=== PATIENT | male | born 1935 | race Caucasian/White ===

== ENCOUNTER 2017-08-30 06:28 | Emergency (ER) | payer MEDICARE, BC ==
--- NOTE | 2017-08-30 07:23 | EDM.PDOC ---
ED HPI GENERAL MEDICAL PROBLEM - General Chief Complaint: General Stated Complaint: weak Time Seen by Provider: 08/30/17 07:10 Source of Information: Reports: Patient, Old Records, RN History Limitations: Reports: No Limitations - History of Present Illness INITIAL COMMENTS - FREE TEXT/NARRATIVE: 82 yo male who has multiple chronic medical conditions and who lives alone was brought into the ER today for generalized weakness. He lives alone and is wheelchair bound. His weakness has been slowly progressive since his clinic visit in late May. He denies any recent illnesses or pain(other than chronic shoulder pain). Onset: Gradual Duration: Week(s):, Getting Worse Location: Reports: Generalized Quality: Reports: Other (no new pain) Severity: Moderate Improves with: Reports: None Worsens with: Reports: Other (? time) Context: Reports: Other (? lack of physical activity.) Associated Symptoms: Reports: No Other Symptoms Treatments R[employer]: Reports: Other (see below) (none) - Related Data Allergies Allergy/AdvReac Type Severity Reaction Status Date / Time No Known Allergies Allergy Verified 03/19/15 21:51 Home Meds: Home Meds Aspirin [Melina Chewable Aspirin] 81 mg PO DAILY 09/26/14 [History] Bimatoprost [Lumigan] 1 drop EYEBOTH BEDTIME 09/26/14 [History] Brimonidine Tartrate [Alphagan P] 1 drop EYEBOTH BID 09/26/14 [History] Dorzolamide HCl/Timolol Maleat [Cosopt Eye Drops] 1 drop EYEBOTH BID 09/26/14 [ History] Isosorbide Dinitrate 5 mg PO TID 09/26/14 [History] Nitroglycerin [Nitrostat] 0.4 mg SL ASDIRECTED PRN 09/26/14 [History] Warfarin [Coumadin] 2 mg PO ASDIRECTED 03/19/15 [History] Warfarin [Coumadin] 4 mg PO SUTUTH 03/19/15 [History] Furosemide 1 tab PO DAILY PRN 08/30/17 [History] Gluc HCl/Csa/Lauro Hy/Hyalur Ac [Glucosamine Chondroitin] 1 tab PO DAILY [History] Metoprolol Tartrate [Lopressor] 100 mg PO BID 08/30/17 [History] Past Medical History HEENT History: Reports: Cataract, Glaucoma, Impaired Vision Cardiovascular History: Reports: Afib, Angina, CAD, High Cholesterol, Hypertension Genitourinary History: Reports: BPH Musculoskeletal History: Reports: Osteoarthritis, Other (See Below) Other Musculoskeletal History: Scoliosis Psychiatric History: Reports: Anxiety, Depression Dermatologic History: Reports: Urticaria - Past Surgical History HEENT Surgical History: Reports: Cataract Surgery Social & Family History - Tobacco Use Smoking Status *Q: Never Smoker Second Hand Smoke Exposure: No - Alcohol Use Days Per Week of Alcohol Use: 7 Number of Drinks Per Day: 1 Total Drinks Per Week: 7 - Recreational Drug Use Recreational Drug Use: No ED ROS GENERAL - Review of Systems Review Of Systems: See Below Constitutional: Reports: Weakness HEENT: Reports: No Symptoms Respiratory: Reports: No Symptoms Cardiovascular: Reports: No Symptoms Endocrine: Reports: No Symptoms GI/Abdominal: Reports: No Symptoms : Reports: No Symptoms Musculoskeletal: Reports: No Symptoms Skin: Reports: No Symptoms Neurological: Reports: No Symptoms Psychiatric: Reports: No Symptoms ED EXAM, GENERAL - Physical Exam Exam: See Below Exam Limited By: No Limitations General Appearance: Alert, WD/WN, No Apparent Distress Eye Exam: Bilateral Eye: Normal Inspection, PERRL Ears: Normal External Exam, Normal Canal, Hearing Grossly Normal, Normal TMs Ear Exam: Bilateral Ear: Auricle Normal, Canal Normal, TM normal Nose: Normal Inspection, Normal Mucosa, No Blood Throat/Mouth: Normal Inspection, Normal Lips, Normal Oropharynx, Normal Voice, No Airway Compromise Head: Atraumatic, Normocephalic Neck: Normal Inspection, Supple, Non-Tender Respiratory/Chest: No Respiratory Distress, Lungs Clear, Normal Breath Sounds, No Accessory Muscle Use Cardiovascular: Normal Peripheral Pulses, Regular Rate, Rhythm, No Edema GI/Abdominal: Normal Bowel Sounds, Soft, Non-Tender, No Distention Back Exam: Normal Inspection. No: CVA Tenderness (R), CVA Tenderness (L) Extremities: Non-Tender, Pedal Edema (bilaterally to the lower extrems below the knees.) Neurological: Alert, Oriented, CN II-XII Intact, Normal Cognition, No Motor/ Sensory Deficits Psychiatric: Normal Affect, Normal Mood Skin Exam: Warm, Dry, Intact, Normal Color, No Rash Lymphatic: No Adenopathy Course - Vital Signs Text/Narrative:: school services officer consult. Will admit to an available [facility]. Last Recorded V/S: Last Vital Signs Temp 36.7 C 08/30/17 06:29 Pulse 83 08/30/17 06:29 Resp 15 08/30/17 06:29 BP 122/94 H 08/30/17 06:29 Pulse Ox 92 L 08/30/17 06:29 - Orders/Labs/Meds Orders: Active Orders 24 hr Category Date Time Status Bladder Scan [RC] ONETIME Care 08/30/17 14:50 Active UA W/MICROSCOPIC [URIN] Stat Lab 08/30/17 15:07 Ordered Labs: Laboratory Tests 08/30/17 08/30/17 08/30/17 Range/Units 07:27 07:27 07:27 WBC 5.5 (4.5-11.0) K/uL RBC 4.34 (4.30-5.90) M/uL Hgb 13.7 D (12.0-15.0) g/dL Hct 40.5 (40.0-54.0) % MCV 93 (80-98) fL MCH 32 H (27-31) pg MCHC 34 (32-36) % Plt Count 178 (150-400) K/uL PT 23.8 H (9.5-12.0) sec INR 2.15 H (0.80-1.20) Sodium 131 L (140-148) mmol/L Potassium 4.5 (3.6-5.2) mmol/L Chloride 98 L (100-108) mmol/L Carbon Dioxide 23 (21-32) mmol/L Anion Gap 14.5 H (5.0-14.0) mmol/L BUN 12 (7-18) mg/dL Creatinine 0.8 (0.8-1.3) mg/dL Est Cr Clr Drug Dosing 62.03 mL/min Estimated GFR (MDRD) > 60 (>60) Glucose 127 H (74-106) mg/dL Calcium 9.0 (8.5-10.1) mg/dL Magnesium (1.8-2.4) mg/dL Total Bilirubin 1.2 H (0.2-1.0) mg/dL AST 60 H D (15-37) U/L ALT 45 D (12-78) U/L Alkaline Phosphatase 136 H (46-116) U/L Total Protein 7.0 (6.4-8.2) g/dL Albumin 3.3 L (3.4-5.0) g/dL Globulin 3.7 H (2.3-3.5) g/dL Albumin/Globulin Ratio 0.9 L (1.2-2.2) 08/30/17 Range/Units 07:27 WBC (4.5-11.0) K/uL RBC (4.30-5.90) M/uL Hgb (12.0-15.0) g/dL Hct (40.0-54.0) % MCV (80-98) fL MCH (27-31) pg MCHC (32-36) % Plt Count (150-400) K/uL PT (9.5-12.0) sec INR (0.80-1.20) Sodium (140-148) mmol/L Potassium (3.6-5.2) mmol/L Chloride (100-108) mmol/L Carbon Dioxide (21-32) mmol/L Anion Gap (5.0-14.0) mmol/L BUN (7-18) mg/dL Creatinine (0.8-1.3) mg/dL Est Cr Clr Drug Dosing mL/min Estimated GFR (MDRD) (>60) Glucose (74-106) mg/dL Calcium (8.5-10.1) mg/dL Magnesium 1.7 L (1.8-2.4) mg/dL Total Bilirubin (0.2-1.0) mg/dL AST (15-37) U/L ALT (12-78) U/L Alkaline Phosphatase (46-116) U/L Total Protein (6.4-8.2) g/dL Albumin (3.4-5.0) g/dL Globulin (2.3-3.5) g/dL Albumin/Globulin Ratio (1.2-2.2) Meds: Medications Discontinued Medications Generic Name Dose Route Start Last Admin Trade Name Freq PRN Reason Stop Dose Admin Aspirin 81 mg 08/30/17 09:44 Aspirin PO 08/30/17 09:45 ONETIME ONE Isosorbide Dinitrate 5 mg 08/30/17 09:44 Isordil PO 08/30/17 09:45 ONETIME ONE Metoprolol Tartrate 100 mg 08/30/17 09:43 Lopressor PO 08/30/17 09:44 ONETIME ONE Warfarin Sodium 4 mg 08/30/17 09:43 Coumadin PO 08/30/17 09:44 ONETIME ONE Departure - Departure Time of Disposition: 15:30 Disposition: DC/[facility]fer to [facility] Condition: Fair Clinical Impression: Generalized weakness - Discharge Information Referrals: PCP,None [Primary Care Provider] - Forms: ED Department Discharge - My Orders Last 24 Hours: My Active Orders 08/30/17 14:50 Bladder Scan [RC] ONETIME 08/30/17 15:07 UA W/MICROSCOPIC [URIN] Stat - Assessment/Plan Last 24 Hours: My Active Orders 08/30/17 14:50 Bladder Scan [RC] ONETIME 08/30/17 15:07 UA W/MICROSCOPIC [URIN] Stat
[2017-08-30] MEDS ORDERED: Metoprolol Tartrate 50 MG Tab PO ONE (09:43)
[2017-08-30] MEDS ORDERED: Aspirin 81 MG Tab.Chew PO ONE (09:44)
[2017-08-30] MEDS ORDERED: Isosorbide Dinitrate 10 MG Tab PO ONE (09:44)
[2017-08-30 15:49] VITALS: BP 113/62
== END 2017-08-30 15:10 ==
LOC: JP.ED 06:28
DX: R53.1 Weakness (principal); I10 Essential (primary) hypertension; Z79.82 Long term (current) use of aspirin; Z79.899 Other long term (current) drug therapy; Z79.01 Long term (current) use of anticoagulants
CPT/HCPCS: 36415; 80053; 81001; 83735; 85027; 85610; 99283; 99285